=== PATIENT | female | born 1935 | race Caucasian/White ===

== ENCOUNTER → 2020-08-12 | Outpatient (CLI) | payer OTHER ==
[~2020-08-12] VITALS: Ht 160 cm; Wt 80.3 kg
[~2020-08-12] MED LIST: albuterol 2.5 MG/3 ML nebule NEB ONE
== END | disposition home or self-care (01) ==
LOC: RT 06:55
PROVIDERS: ATTEND Internal Medicine
DX: J44.9 Chronic obstructive pulmonary disease, unspecified (principal)
CPT/HCPCS: 94010

== ENCOUNTER 2020-08-31 14:32 | Day surgery (SDC) | payer OTHER ==
[~2020-08-31] VITALS: Ht 160 cm; Wt 82.0 kg
[2020-08-31] VITALS (8 sets, daily range): BP systolic 151–198; BP diastolic 67–86
[2020-08-31] MEDS ORDERED: normal saline 1000ml 1,000 ML IV SCH (15:00)
[2020-08-31] MEDS ORDERED: MIDAZolam 1mg/ml 10ml vial IV ONE (15:00)
[2020-08-31] MEDS ORDERED: fentaNYL/PF 50MCG/1 ML 2ML syringe IV ONE (15:00)
[2020-08-31] MEDS ORDERED: FURO-150 PO (15:13)
[2020-08-31] MEDS ORDERED: CHOL400T57 PO (15:13)
[2020-08-31] MEDS ORDERED: CARV-50 PO (15:13)
[2020-08-31] MEDS ORDERED: DULO-31 PO (15:13)
[2020-08-31] MEDS ORDERED: CARSR60C PO (15:13)
[2020-08-31] MEDS ORDERED: PRAV40TA3 PO (15:13)
[2020-08-31] MEDS ORDERED: POTA10TA19 PO (15:13)
[2020-08-31] MEDS ORDERED: AMA1T PO (15:13)
[2020-08-31] MEDS ORDERED: AMIO200T61 PO (15:13)
[2020-08-31] MEDS ORDERED: IRON15TA3 PO (15:13)
[2020-08-31] MEDS ORDERED: APIX5TAB3 PO (15:13)
[2020-08-31] MEDS ORDERED: A/C/1TAB3 PO (15:13)
[2020-08-31] MEDS ORDERED: MAGN250T11 PO (15:13)
== END 2020-08-31 18:30 | disposition home or self-care (01) ==
LOC: SSTAY O 14:32
PROVIDERS: ATTEND Internal Medicine Interventional Cardiology
DX: I48.91 Unspecified atrial fibrillation (principal); I10 Essential (primary) hypertension; E78.5 Hyperlipidemia, unspecified; E11.9 Type 2 diabetes mellitus without complications; Z79.84 Long term (current) use of oral hypoglycemic drugs; Z79.01 Long term (current) use of anticoagulants; Z79.899 Other long term (current) drug therapy; Z88.8 Allergy status to other drugs, medicaments and biological substances
CPT/HCPCS: 82948; 92960; 93005; J2250; J3010; J7030